=== PATIENT | male | born 1950 | race Caucasian/White ===

== ENCOUNTER 2018-04-24 09:35 | Outpatient (CLI) | payer BC ==
[2018-04-24 12:24] VITALS: BP 160/70
--- NOTE | 2018-04-24 13:40 | CARDIAC PROCEDURE NOTE ---
DATE OF SERVICE: 04/24/2018 Physician: DEDE Bingham PRIMARY CARE PROVIDER: Dr. Brett Combs. ORDERING PHYSICIAN: Dr. John Bennett. PROCEDURE: Stress echocardiogram. DESCRIPTION OF PROCEDURE SYMPTOMS: Dyspnea on exertion and fatigue. CARDIAC RISK FACTORS: Age and hypertension. PREVIOUS CARDIAC PROCEDURES: MPS CLINICAL HISTORY: A 67-year-old active male without known coronary artery disease. He feels well today. INITIAL RESTING VITAL SIGNS: Blood pressure 166/90, heart rate 65, height 72 inches, weight 165 pounds. BMI 22.5. PROCEDURE AND FINDINGS: The patient's identity and date verified. Consent signed. After resting echocardiogram, images were obtained. The patient performed treadmill exercise using a Nico protocol, completing 9 minutes 5 seconds, and an estimated workload of 10.16 metabolic equivalents. Maximal blood pressure was 224/92 with a heart rate of 138 beats per minute or 90% of maximum predicted heart rate for age. The blood pressure response to exercise was as expected. The patient stopped exercise because he rated exercise as very hard and target heart rate was achieved. He also had some mild lightheadedness. The resting ECG demonstrated normal sinus rhythm with a slightly biphasic T-wave in V2 and V3 and criteria for LVH. There was less than 0.[address] segment depression and occasional PAC and PVC. Post-exercise images were obtained immediately on cessation of exercise. Five minutes into recovery, his blood pressure dropped from 178/74. Two minutes later it was 138/76 while he was still supine. It rebounded 2 minutes later to 156/76. He was asymptomatic. FINAL IMPRESSION 1. Good quality test. 2. No electrocardiogram signs of ischemia. 3. Negative stress test clinically for angina. 4. Rare premature atrial contractions and 2 premature ventricular contractions. 5. Await echocardiogram. TD: 04/24/2018 12:57
== END 2018-04-24 09:36 | disposition home or self-care (01) ==
LOC: DI 09:35
PROVIDERS: ATTEND Internal Medicine Cardiovascular Disease
DX: R53.83 Other fatigue (principal); R06.00 Dyspnea, unspecified; I10 Essential (primary) hypertension; I77.810 Thoracic aortic ectasia
CPT/HCPCS: 93351

== ENCOUNTER 2023-06-03 08:00 | Outpatient (CLI) | payer MEDICARE | END 2023-06-03 23:59 | disposition home or self-care (01) | LOC: LAB.S 08:00 | PROVIDERS: ATTEND Physician Assistant | DX: K61.1 Rectal abscess (principal) | CPT/HCPCS: 87070; 87077; 87181; 87205 ==

== ENCOUNTER 2023-08-29 13:08 | Outpatient (CLI) | payer MEDICARE ==
--- NOTE | 2023-08-29 13:26 | XRAY Report ---
PROCEDURE: Tib/Fib LT INDICATIONS: LEFT LOWER LIMB PAIN TECHNIQUE: 2 views of the tibia and fibula were acquired. COMPARISON: None. FINDINGS: Bones: No fractures or dislocations. No suspicious bony lesions. Soft tissues: No suspicious soft tissue calcifications or masses. IMPRESSION: No acute bony abnormality. Reviewed by: Chuy Zapata MD on 08/29/2023 1:24 PM PDT Approved by: Chuy Zapata MD on 08/29/2023 1:24 PM PDT Station ID: [id number]
[2023-08-29 15:42] LABS: ALBUMIN 4.9 g/dL (3.2-5.5); ALBUMIN/GLOBULIN RATIO 1.6 (1.0-2.2); BILIRUBIN,TOTAL 0.9 mg/dL (0.2-1.0); CALCIUM 10.3 mg/dL (8.5-10.3); MAGNESIUM 1.9 mg/dL (1.7-2.3); POTASSIUM 4.1 mmol/L (3.5-4.5)
[2023-08-29 16:41] LABS: THYROID STIMULATING HORMONE 2.06 uIU/mL (0.34-5.60)
== END 2023-08-29 23:59 | disposition home or self-care (01) ==
LOC: DI.S 13:08
PROVIDERS: ATTEND Physician Assistant Medical
DX: M79.605 Pain in left leg (principal); R25.2 Cramp and spasm; R25.3 Fasciculation; Z13.29 Encounter for screening for other suspected endocrine disorder
CPT/HCPCS: 36415; 80053; 83735; 84443

== ENCOUNTER 2023-09-06 15:53 | Outpatient (CLI) | payer MEDICARE ==
--- NOTE | 2023-09-06 19:07 | Ultrasound Report ---
PROCEDURE: Duplex Ext Veins Left INDICATIONS: SWELLING LEFT LOWER LEG TECHNIQUE: Real-time imaging, as well as color and pulse Doppler interrogation, were performed of th e lower extremity deep veins from the inguinal ligament to the popliteal fossa. Attempted visualizati on of the calf veins was performed. COMPARISON: None. FINDINGS: The deep veins are normally compressible, and free of intraluminal thrombus. Color and pu lse Doppler demonstrate normal phasic intraluminal flow. There is normal augmentation response to di stal compression maneuver. IMPRESSION: No deep venous thrombosis of the visualized lower extremity. Reviewed by: Leo Weldon MD on 09/06/2023 6:05 PM [facility] Approved by: Leo Weldon MD on 09/06/2023 6:05 PM DI[facility] Station ID: [id number]
== END 2023-09-06 15:54 | disposition home or self-care (01) ==
LOC: DI 15:53
PROVIDERS: ATTEND Physician Assistant Medical
DX: R22.42 Localized swelling, mass and lump, left lower limb (principal); R25.2 Cramp and spasm; M79.605 Pain in left leg